=== PATIENT | male | born 1945 | race Caucasian/White ===

== ENCOUNTER → 2017-12-01 08:07 | Outpatient (CLI) | payer MEDICARE, BC, SELFPAY ==
[2017-12-01 10:06] LABS: ALB/GLOB Ratio 1.2 RATIO (0.9-2.4); AST(SGOT) 21 U/L (15-37); Alanine Aminotransfer ALT/SGPT 31 U/L (16-61); Albumin, Serum 3.9 g/dL (3.2-5.0); Alkaline Phosphatase 60 U/L (45-117); Anion Gap 10 (5-15); BUN 18 mg/dL (7-18); BUN/Creat Ratio 18.6 RATIO (10-20); Calcium,Total 8.7 mg/dL (8.5-10.1); Chloride 99 mmol/L (98-107); Creatinine, Serum 0.97 mg/dL (0.70-1.30); EST Glomerular Filtration Rate 81 mL/min (>60); Est Glom Filt Rate - Afr Amer 98 mL/min (>60); Globulin 3.3 g/dL (2.2-4.2); Glucose 97 mg/dL (74-106); PSA,Total - Annual Screen 0.47 ng/mL (0.00-4.00); Protein, Total 7.2 g/dL (6.4-8.2); Sodium Level 140 mmol/L (136-145)
== END ==
PROVIDERS: Family Provider Family Medicine; PCP Family Medicine; Visit Provider Family Medicine
DX: I10 Essential (primary) hypertension (principal); Z12.5 Encounter for screening for malignant neoplasm of prostate
CPT/HCPCS: 36415; 80053; 84153; G0103

== ENCOUNTER 2018-05-22 09:58 | Emergency (ER) | payer MEDICARE, BC, SELFPAY ==
[2018-05-22 09:59] VITALS: BP 152/86; PULSE 76; RESP 16; TEMP 36.6; O2SAT 100; BMI 29.7
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
--- NOTE | 2018-05-22 10:16 | ED.DEP ---
ED Disposition - Plan for ED Patient: Disposition: Home or Assisted Living Chief Complaint: Laceration Instructions: ED Laceration Facial Skin Glue Referrals: Cameron Hennessy MD [Primary Care Provider] - As Needed
[2018-05-22 10:25] VITALS: BP 138/77; PULSE 59; RESP 16; O2SAT 97
== END 2018-05-22 10:30 | disposition home or self-care (01) ==
LOC: ED 10:28
PROVIDERS: Emergency Provider Emergency Medicine; Family Provider Family Medicine; PCP Family Medicine
DX: S01.01XA Laceration without foreign body of scalp, initial encounter (principal); W20.8XXA Other cause of strike by thrown, projected or falling object, initial encounter; Y93.89 Activity, other specified; Y92.9 Unspecified place or not applicable
CPT/HCPCS: 12002; 99282

== ENCOUNTER → 2018-12-04 11:09 | Outpatient (CLI) | payer MEDICARE, BC, SELFPAY ==
[2018-12-04 12:47] LABS: ALB/GLOB Ratio 1.2 RATIO (0.9-2.4); AST(SGOT) 24 U/L (15-37); Alanine Aminotransfer ALT/SGPT 31 U/L (16-61); Alkaline Phosphatase 61 U/L (45-117); Anion Gap 9 (5-15); BUN 19 mg/dL (7-18); BUN/Creat Ratio 19.1 RATIO (10-20); Calcium,Total 8.8 mg/dL (8.5-10.1); Chloride 101 mmol/L (98-107); Cholesterol 159 mg/dL (200); EST Glomerular Filtration Rate 79 mL/min (>60); Est Glom Filt Rate - Afr Amer 95 mL/min (>60); Globulin 3.3 g/dL (2.2-4.2); Glucose 111 mg/dL (74-106); High Density Lipoprotein 48 mg/dL; PSA,Total - Annual Screen 0.47 ng/mL (0.00-4.00); Potassium 3.6 mmol/L (3.5-5.1); Protein, Total 7.3 g/dL (6.4-8.2); Sodium Level 136 mmol/L (136-145); Triglycerides 185 mg/dL; Very Low Density Lipoprotein 37 mg/dL (5-40)
== END ==
PROVIDERS: Family Provider Family Medicine; PCP Family Medicine; Visit Provider Family Medicine
DX: I10 Essential (primary) hypertension (principal); M10.9 Gout, unspecified; Z12.5 Encounter for screening for malignant neoplasm of prostate
CPT/HCPCS: 36415; 80053; 80061; 84153; 84550; G0103

== ENCOUNTER → 2019-12-10 10:35 | Outpatient (CLI) | payer MEDICARE, BC, SELFPAY ==
[2019-12-10 12:15] LABS: Erythrocyte Sedimentation Rate 5 mm/hr (0-20)
[2019-12-10 12:17] LABS: Hematocrit 45.6 % (40-54); Hemoglobin 15.2 g/dL (13.0-16.5); Mean Corp Hgb Conc 33.3 g/dL (32-36); Mean Corpuscular Hgb 29.6 pg (27.0-32.0); Mean Corpuscular Volume 88.7 fL (80-94); Platelet Count 247 K/mm3 (150-450); RBC Distribution Width CV 11.8 % (11.6-14.6); RBC Distribution Width SD 37.8 fl (35.1-43.9); Red Blood Count 5.14 M/mm3 (4.6-6.2); White Blood Count 7.1 K/mm3 (4.4-11.0)
[2019-12-10 12:23] LABS: Vitamin B12 645 pg/mL (211-911); Vitamin D,25 Hydroxy 37.4 ng/mL
[2019-12-10 12:25] LABS: ALB/GLOB Ratio 1.2 RATIO (0.9-2.4); AST(SGOT) 22 U/L (15-37); Alanine Aminotransfer ALT/SGPT 30 U/L (16-61); Alkaline Phosphatase 62 U/L (45-117); Anion Gap 6 (5-15); BUN 15 mg/dL (7-18); BUN/Creat Ratio 17.4 RATIO (10-20); Calcium,Total 8.8 mg/dL (8.5-10.1); Chloride 101 mmol/L (98-107); Creatinine, Serum 0.86 mg/dL (0.70-1.30); EST Glomerular Filtration Rate 93 mL/min (>60); Est Glom Filt Rate - Afr Amer 112 mL/min (>60); Ferritin 55 ng/mL (26-388); Globulin 3.4 g/dL (2.2-4.2); Glucose 113 mg/dL (74-106); Iron 66 ug/dL (65-175); Potassium 3.6 mmol/L (3.5-5.1); Protein, Total 7.4 g/dL (6.4-8.2); Sodium Level 136 mmol/L (136-145)
== END ==
PROVIDERS: PCP Family Medicine; Referring Provider Family Medicine; Visit Provider Family Medicine
DX: R41.3 Other amnesia (principal); I10 Essential (primary) hypertension; E78.00 Pure hypercholesterolemia, unspecified; E55.9 Vitamin D deficiency, unspecified; E61.1 Iron deficiency
CPT/HCPCS: 80053; 82306; 82607; 82728; 83540; 85027; 85652

== ENCOUNTER → 2020-01-11 13:15 | Outpatient (CLI) | payer MEDICARE, BC, SELFPAY ==
--- NOTE | 2020-01-11 13:21 | CT_ITS ---
STUDY: CT BRAIN WITHOUT CONTRAST REASON FOR EXAM: Male, 74 years old. MEMORY LOSS RADIATION DOSAGE (If Supplied By Facility): CTDIvol = ( 60.81 ) mGy, DLP = ( 1089.89 ) mGycm TECHNIQUE: Transaxial CT imaging of the brain was performed without administration of intravenous contrast material. Individualized dose optimization techniques were used for this CT. COMPARISON: No relevant priors. FINDINGS: Normal soft tissue structures. Normal calvarium. There is mild cerebral atrophy with widening of the extra-axial spaces and ventricular dilatation. There are areas of decreased attenuation within the white matter tracts of the supratentorial brain, consistent with microvascular disease changes. Normal basal ganglia and thalami. Normal brainstem. There is mild cerebellar atrophy. There is no intracranial hemorrhage. There are no findings of an acute ischemic infarction. Atherosclerotic calcification of the cavernous portions of the internal carotid arteries bilaterally. Partial opacification of the ethmoid sinuses bilaterally. Mild degree of the inflammatory changes in the right frontal sinus as well as the inferior aspects of the maxillary sinuses. CT/Brain/Head without Contrast IMPRESSION: Chronic involutional changes of the brain. Sinusitis. Electronically Signed: Nicko Matos, at 13:43 EDT , Service support ,
== END ==
PROVIDERS: PCP Family Medicine; Referring Provider Family Medicine; Visit Provider Family Medicine
DX: R41.3 Other amnesia (principal)
CPT/HCPCS: 70450

== ENCOUNTER → 2020-09-11 15:16 | Outpatient (CLI) | payer MEDICARE, BC, SELFPAY ==
--- NOTE | 2020-09-11 16:01 | RAD_ITS ---
STUDY: X-RAY - RIGHT KNEE REASON FOR EXAM: Chronic right knee pain, no recent injury. TECHNIQUE: 4 view(s) of the knee. COMPARISON: None. FINDINGS: Normal visualized distal femur. Normal visualized proximal tibia and fibula. Normal proximal tibiofibular articulation. There is mild joint space narrowing of the medial femorotibial compartment. There is moderate joint space narrowing of the lateral femorotibial compartment. Normal patellofemoral articulation. There is vascular calcification. 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 Electronically Signed: Andres Jaeger MD at 9:10 EST Tel , Service support ,
== END ==
PROVIDERS: PCP Family Medicine; Referring Provider Family Medicine; Visit Provider Family Medicine
DX: M25.561 Pain in right knee (principal)
CPT/HCPCS: 73564

== ENCOUNTER → 2021-07-17 | Outpatient (CLI) | payer MEDICARE, BC, SELFPAY ==
--- NOTE | 2021-07-17 09:23 | EKG12_ITS ---
Test Reason : PREOP Blood Pressure : / mmHG Vent. Rate : 056 BPM Atrial Rate : 056 BPM P-R Int : 220 ms QRS Dur : 094 ms QT Int : 424 ms P-R-T Axes : 015 056 040 degrees QTc Int : 409 ms Sinus bradycardia with 1st degree A-V block Otherwise normal ECG Confirmed by ALEN BAUER, JEANIE ([id number]), purchase request editor KOKO ORTIZ ([id number]) on 07/20/2021 9:16:13 AM Referred By: BEATA MATA Confirmed By:LILY LOWRY MD
[2021-07-17 09:59] LABS: Hematocrit 42.9 % (40-54); Hemoglobin 14.7 g/dL (13.0-16.5); Mean Corp Hgb Conc 34.3 g/dL (32-36); Mean Corpuscular Hgb 29.9 pg (27.0-32.0); Mean Corpuscular Volume 87.2 fL (80-94); Mean Platelet Vol. 9.9 fl (6.2-12.0); Platelet Count 243 K/mm3 (150-450); RBC Distribution Width CV 11.9 % (11.6-14.6); RBC Distribution Width SD 38.5 fl (35.1-43.9); Red Blood Count 4.92 M/mm3 (4.6-6.2); White Blood Count 6.6 K/mm3 (4.4-11.0)
[2021-07-17 10:18] LABS: Hemoglobin A1c 5.8 % (3.8-5.6)
[2021-07-17 10:33] LABS: Anion Gap 6 (5-15); BUN 13 mg/dL (7-18); BUN/Creat Ratio 15.9 RATIO (10-20); Calcium,Total 8.9 mg/dL (8.5-10.1); Chloride 98 mmol/L (98-107); Creatinine, Serum 0.82 mg/dL (0.70-1.30); EST Glomerular Filtration Rate 98 mL/min (>60); Est Glom Filt Rate - Afr Amer 118 mL/min (>60); Glucose 101 mg/dL (74-106); Potassium 3.4 mmol/L (3.5-5.1); Sodium Level 135 mmol/L (136-145)
== END | disposition home or self-care (01) ==
PROVIDERS: PCP Family Medicine; Visit Provider Physician Assistant
DX: Z01.810 Encounter for preprocedural cardiovascular examination (principal); R73.09 Other abnormal glucose
CPT/HCPCS: 36415; 80048; 83036; 85027; 93005

== ENCOUNTER → 2021-07-29 15:23 | Outpatient (CLI) | payer MEDICARE, BC, SELFPAY ==
--- NOTE | 2021-07-29 11:30 | HIP_PTH ---
PATIENT: IGNACIO NUNES LOC: [facility] U#:[id number] AGE/SX: 80/M ROOM: RE07/29/[address]: Dr. Quinton Mcpherson DO : 1945 BED: DIS: SPEC #: [id number] RECD: 07/29/21 15:00 STATUS: BRIDGET LISA #: [id number] MARY: 07/29/21 11:[address]: Quinton Mcpherson DEPT: SURGICAL PATHOLOGY RECD BY: Yaneth Sparks ENTERED: 07/30/21 08:54 SP TYPE: TOTAL HIP OTHR DR: Dr. Dane Hennessy MD [facility] Tissues: Hip, NOS Procedures: Decalcification bone/plaque Surgery Specimen Level IV HEADER OPERATION: Right total hip arthroplasty PRE-OP DIAGNOSIS: Primary osteoarthritis right hip TISSUE SUBMITTED: Bone right hip MICROSCOPIC DIAGNOSIS Bone and tissue of right hip, total hip resection: Severe degenerative joint disease. AM:chana 08/05/2021 MICROSCOPIC DESCRIPTION Slides are reviewed. GROSS DESCRIPTION Received is one container labeled with the patient's name and designated bone right hip. The specimen consists of a mcleod femoral head with portion of femoral neck. The femoral head measures 1 x 1 x 0.8 cm and the femoral neck measures 16 x 14 x 2 cm in length. The articular surface displays prominent osteophyte formation and bone erosion. Also present in the specimen container are multiple irregular fragments of bone reamings and pink-yellow soft tissue measuring in aggregate 9 x 8 x 2 cm. Assembler Ping Pong Table sections are submitted in two cassettes as follows: 1 - soft tissue, 2 - bone after decalcification. / AM:chana 07/30/21 TC:5 [facility]: [id number]
== END ==
PROVIDERS: PCP Family Medicine; Visit Provider Orthopaedic Surgery
DX: M16.11 Unilateral primary osteoarthritis, right hip (principal)
CPT/HCPCS: 88305; 88311

== ENCOUNTER → 2022-01-25 | Outpatient (CLI) | payer MEDICARE, BC, SELFPAY ==
[2022-01-25 11:02] LABS: ALB/GLOB Ratio 1.1 RATIO (0.9-2.4); AST(SGOT) 20 U/L (15-37); Alanine Aminotransfer ALT/SGPT 30 U/L (16-61); Albumin, Serum 3.6 g/dL (3.2-5.0); Alkaline Phosphatase 81 U/L (45-117); Anion Gap 4 (5-15); BUN 16 mg/dL (7-18); BUN/Creat Ratio 17.8 RATIO (10-20); Calcium,Total 8.8 mg/dL (8.5-10.1); Chloride 102 mmol/L (98-107); Cholesterol 153 mg/dL (200); EST Glomerular Filtration Rate 88 mL/min (>60); Est Glom Filt Rate - Afr Amer 106 mL/min (>60); Globulin 3.3 g/dL (2.2-4.2); Glucose 108 mg/dL (74-106); High Density Lipoprotein 47 mg/dL; PSA,Total - Annual Screen 0.39 ng/mL (0.00-4.00); Potassium 4.2 mmol/L (3.5-5.1); Protein, Total 6.9 g/dL (6.4-8.2); Sodium Level 137 mmol/L (136-145); Thyroid Stim Hormone (TSH) 2.09 uIU/mL (0.358-3.74); Triglycerides 102 mg/dL; Very Low Density Lipoprotein 20 mg/dL (5-40)
== END | disposition home or self-care (01) ==
LOC: MFPLAB 08:35
PROVIDERS: PCP Family Medicine; Visit Provider Family Medicine
DX: I10 Essential (primary) hypertension (principal); F03.90 Unspecified dementia, unspecified severity, without behavioral disturbance, psychotic disturbance, mood disturbance, and anxiety; Z12.5 Encounter for screening for malignant neoplasm of prostate
CPT/HCPCS: 36415; 80053; 80061; 84153; 84443; G0103

== ENCOUNTER → 2022-04-26 | Outpatient (CLI) | payer MEDICARE, BC, SELFPAY ==
[2022-05-11 13:08] LABS: Testosterone, Free 6.22 ng/dL (5.00-21.00)
[2022-05-11 14:48] LABS: Testosterone, % Free 2.51 % (1.50-4.20); Testosterone, Total 248 ng/dL (264-916)
== END | disposition home or self-care (01) ==
LOC: MFPLAB 11:46
PROVIDERS: PCP Family Medicine; Visit Provider Family Medicine
DX: E34.9 Endocrine disorder, unspecified (principal)
CPT/HCPCS: 36415; 84402; 84403

== ENCOUNTER → 2022-04-30 | Outpatient (CLI) | payer MEDICARE, BC, SELFPAY ==
--- NOTE | 2022-04-30 16:19 | MRI_ITS ---
STUDY: MRI BRAIN WITHOUT CONTRAST REASON FOR EXAM: Male, 76 years old. DEMENTIA -- N TECHNIQUE: Standardized multiplanar fat and water weighted pulse sequences were obtained. COMPARISON: CT of the brain 01/11/2020 FINDINGS: There is mild atrophy with most severe involvement of the temporal lobes.. Mild to moderate periventricular white matter ischemic changes are seen without mass effect or restricted diffusion. Normal white matter tracts of the supratentorial brain. Normal bilateral basal ganglia. Normal thalami. There is no extra-axial fluid accumulation. Normal flow voids within the major intracranial circulation suggesting patency by spin echo criteria. Normal sella turcica, pituitary gland, infundibular stalk, optic chiasm and hypothalamus. Normal tectal plate and pineal gland. Normal midbrain, fabiano and medulla. Normal cerebellum. Normal basal cisterns. Normal bilateral temporal bones. Normal bilateral internal auditory canals. No demonstrated orbital abnormality, within the constraints of a routine brain study. Small mucous retention cyst or polyp in the right anterior ethmoid air cells.. There also appear to be polyps within the posterior nasal cavity however clinical correlation is recommended in this regard. Normal calvarium and skull base. Normal visualized soft tissue structures. Normal visualized upper cervical spine. MRI/Brain without Contrast IMPRESSION: Atrophy and mild to moderate periventricular white matter ischemic changes.. There is disproportionate atrophy of the temporal lobes raising question of changes of Alzheimer''s dementia however clinical correlation is recommended No evidence for acute infarct Electronically Signed: Rob Austin MD at 18:20 EDT ,
== END | disposition home or self-care (01) ==
LOC: MRI 16:06
PROVIDERS: PCP Family Medicine; Referring Provider Family Medicine; Visit Provider Family Medicine
DX: F03.90 Unspecified dementia, unspecified severity, without behavioral disturbance, psychotic disturbance, mood disturbance, and anxiety (principal)
CPT/HCPCS: 70551

== ENCOUNTER → 2023-01-11 | Outpatient (CLI) | payer MEDICARE, BC, SELFPAY ==
--- NOTE | 2023-01-11 09:45 | ECHOD_ITS ---
Reason For Study: ISAI Procedure This was a 2D Doppler, Color Flow transthoracic echocardiogram. Technically difficult due to patient breathing. Exam performed in department. Left Ventricle Normal size and thickness. The left ventricular ejection fraction is 65 %. Normal diastology for age. Right Ventricle Normal right ventricle. Atria The left and right atria are normal. Mitral Valve There is Moderate focal posterior mitral annular calcification. Trivial mitral valve insufficiency. Tricuspid Valve Mild tricuspid valve insufficiency. Right ventricular systolic pressure estimated to be 38 mmHg. Aortic Valve Aortic sclerosis, no stenosis. Pulmonic Valve The pulmonic valve is not well visualized. Mild (1+) pulmonic valve insufficiency. Great Vessels Mildly dilated aortic root. Pericardium/Pleural No pericardial effusion. MMode/2D Measurements & Calculations LVIDd: 5.6 cm IVSd: 0.98 cm Ao root diam: 3.9 cm LVIDs: 2.9 cm LVPWd: 0.81 cm FS: 48.1 % LAV(MOD-bp): 53.1 ml LVAd ap4: 25.5 cm2 SV(MOD-sp4): 35.8 ml LAV(MOD-bp) Indexed: 23.7 ml/m2 LVLd ap4: 7.4 cm LAV(MOD-sp2): 69.5 ml EDV(MOD-sp4): 72.2 ml LAV(MOD-sp4): 36.2 ml EDV(sp4-el): 74.6 ml LVAs ap4: 16.3 cm2 LVLs ap4: 6.6 cm ESV(MOD-sp4): 36.4 ml ESV(sp4-el): 34.3 ml EF(MOD-sp4): 49.5 % EF(sp4-el): 54.0 % SV(sp4-el): 40.2 ml LA A4 area: 15.8 cm2 LA dimension(2D): 3.7 cm RA A4 area: 13.6 cm2 Time Measurements MV dec time: 0.30 sec Doppler Measurements & Calculations MV E max nigel: 80.1 cm/sec Lat Peak E' Nigel: 14.0 cm/sec Med Peak E' Nigel: 13.9 cm/sec MV A max nigel: 79.6 cm/sec E/E' lat: 5.7 E/E' med: 5.8 MV E/A: 1.0 MV V2 max: 92.1 cm/sec Ao V2 max: 171.6 cm/sec MV max P.4 mmHg MV dec slope: 262.7 cm/sec2 Ao max P.8 mmHg MV V2 mean: 62.0 cm/sec Ao V2 mean: 110.8 cm/sec MV mean P.7 mmHg Ao mean P.8 mmHg MV V2 VTI: 41.6 cm Ao V2 VTI: 36.9 cm AV (velocity ratio): 0.69 LV V1 max: 115.6 cm/sec PA V2 max: 109.3 cm/sec TR max nigel: 293.4 cm/sec LV V1 max P.4 mmHg PA V2 mean: 73.9 cm/sec TR max P.4 mmHg LV V1 mean P.9 mmHg LV V1 mean: 78.2 cm/sec LV V1 VTI: 25.5 cm ECHO/Echo Complete Interpretation Summary The left ventricular ejection fraction is 65 %. Mild tricuspid valve insufficiency. Mild (1+) pulmonic valve insufficiency. Aortic sclerosis, no stenosis. Mildly dilated aortic root. There is Moderate focal posterior mitral annular calcification. Ordering Physician: Panda Matson V Referring Physician: Panda Matson V Performed By: Shelly Almodovar RCS
--- NOTE | 2023-01-11 16:16 | RAD_ITS ---
EXAM: XR LEFT SHOULDER COMPLETE, 2 OR MORE VIEWS CLINICAL INDICATION: pain TECHNIQUE: Two or more views of the left shoulder. COMPARISON: No relevant prior studies available. FINDINGS: BONES/JOINTS: Unremarkable. No acute fracture. No subluxation. Normal alignment. Preservation of the joint space. No sclerotic or destructive changes observed. SOFT TISSUES: Unremarkable. No soft tissue swelling or gas. No radiopaque foreign body. RAD/Shoulder min 2 Views IMPRESSION: Negative left shoulder x-rays. Electronically Signed: Quinton Perales MD at 0:41 EDT ,
== END | disposition home or self-care (01) ==
PROVIDERS: PCP Family Medicine; Referring Provider Internal Medicine Pulmonary Disease; Visit Provider Internal Medicine Pulmonary Disease
DX: G47.33 Obstructive sleep apnea (adult) (pediatric) (principal); G47.37 Central sleep apnea in conditions classified elsewhere; M25.512 Pain in left shoulder
CPT/HCPCS: 73030; 93306

== ENCOUNTER 2023-05-01 08:06 | Emergency (ER) | payer MEDICARE, BC, SELFPAY ==
[2023-05-01 08:07] VITALS: BP 161/78; PULSE 66; RESP 14; TEMP 36.1; O2SAT 97; BMI 30.1
--- NOTE | 2023-05-01 08:33 | ED.VIS.DENTA ---
HPI History of Present Illness Chief Complaint: Dental Informant: patient and spouse/S.O. Narrative Narrative: Here with spouse history of dementia, presents concerns for pain left dental region. They reported symptoms started yesterday 3 PM, back from [place]. Spouse reports he has pain throughout the night, reported he pressed on his upper gum there was drainage that was clear. No pus. No fevers. He was given Advil at home. Currently denies any pain. PFSH PFS Home Medications Unobtainable 05/22/18 [History Last Taken Unknown] Allergy/AdvReac Type Severity Reaction Status Date / Time No Known Allergies Allergy Verified 05/22/18 10:00 Social History Smoking Status: Former smoker ROS ROS ED Constitutional Constitutional ED: Denies chills, fever(s) or sweats Eyes Eyes: Denies change in vision ENT ENT ED: Reports other Details: Dental pain ; Denies dysphagia or sore throat Cardiovascular Cardiovascular: Denies chest pain, leg edema, palpitations or racing heartbeat Respiratory/Chest Respiratory/Chest: Denies cough, dyspnea or dyspnea on exertion Gastrointestinal Gastrointestinal: Denies abdominal pain, diarrhea, nausea or vomiting Genitourinary Genitourinary ED: Denies dysuria, hematuria or urinary frequency Musculoskeletal Musculoskeletal: Denies back pain, extremity pain or neck pain Integumentary Denies rash or wounds Neurologic Neurologic: Denies headache(s), paresthesias or weakness EXAM Physical Exam Const Vital Signs: 05/01/23 08:07 Temperature 97 F L Temperature Source Temporal Pulse Rate 66 Respiratory Rate 14 Blood Pressure 161/78 H Blood Pressure Mean 105 Pulse Ox 97 Oxygen Delivery Method Room Air Positive well nourished and well developed General Appearance ED: well developed and NAD HEENT Reports moist mucous membranes HEENT Narrative: Evaluation oral mucosa moist, there is no focal dental caries, there is appear to be residual inflammatory change right at the dental/gumline above tooth 11, there is no fluctuance. There is no bleeding. No sublingual edema. No other acute findings. normocephalic and atraumatic Eyes PERRL, EOMs intact bilaterally and conjunctivae normal General Eye ED: Yes normal appearance of both eyes Neck no lymphadenopathy and supple General: Negative for tenderness Chest Wall Chest: Negative for tenderness Resp normal respiratory effort and normal air movement Effort and Inspection: symmetric chest movement; Negative for respiratory distress Cardio regular rate, regular rhythm and no murmurs Peripheral Pulses: pulses 2+ throughout GI normal to inspection, nondistended, normoactive bowel sounds and non-tender Palpation: Negative for guarding or rebound tenderness present Back/Spine no CVA tenderness and no thoracic nor lumbar tenderness Extremity normal to inspection General Extremety ED: Negative for edema or tenderness General Extremity: Negative for edema Neuro no sensory deficits noted Neuro Narrative: Alert to person, baseline per spouse Sensorium / Orientation: awake and alert Skin no rashes or lesions noted and no wounds MDM MDM MDM Narrative Medical decision making narrative: Interventions / MDM: Differential diagnosis: Gingivitis Diagnosis considered but do not suspect: No clinical abscess My EKG interpretation: N/A Imaging independently reviewed and interpreted by myself: N/A External documents reviewed: N/A Test considered but not ordered:N/A ED course: Nontoxic vital signs stable, exam more likely a focal gingivitis that strain, there is no bleeding. He has no symptoms currently. Discussed monitoring for any bleeding or worsening symptoms. Follow-up with his dentist as needed. All questions were answered. Re-evaluation: stable Disposition discussed with patient/family/significant other: Patient and spouse Case discussed with consulting clinician: N/A This note was generated with [employer] dictation software. It may contain incorrect words, spelling, and punctuation that were not noted in checking the note before signing. Discharge Plan Triage Chief Complaint: Dental ED Provider: Gama Foreman Dx/Rx/DC Orders Clinical Impression: Gingivitis, acute, History of dementia Instructions: Understanding Gingivitis Prescriptions: No Action Unobtainable Primary Care Provider: Cameron Hennessy Referrals: Cameron Hennessy MD [Primary Care Provider] - Activity Restrictions/Additional Instructions: Monitor the gumline for any bleeding. Follow-up with your dentist as needed. Disposition Disposition: Home, Self Care Discharge Date/Time: 05/01/23 08:48
== END 2023-05-01 08:48 | disposition home or self-care (01) ==
PROVIDERS: Emergency Provider Emergency Medicine; PCP Family Medicine; Visit Provider Emergency Medicine
DX: K05.00 Acute gingivitis, plaque induced (principal); F03.90 Unspecified dementia, unspecified severity, without behavioral disturbance, psychotic disturbance, mood disturbance, and anxiety; Z87.891 Personal history of nicotine dependence
CPT/HCPCS: 99282

== ENCOUNTER → 2023-05-24 | Outpatient (CLI) | payer MEDICARE, BC, SELFPAY ==
[2023-05-24 11:03] LABS: ALB/GLOB Ratio 1.1 RATIO (0.9-2.4); AST(SGOT) 17 U/L (15-37); Alanine Aminotransfer ALT/SGPT 26 U/L (16-61); Albumin, Serum 3.7 g/dL (3.2-5.0); Alkaline Phosphatase 74 U/L (45-117); Anion Gap 6 (5-15); BUN 14 mg/dL (7-18); BUN/Creat Ratio 15.4 RATIO (10-20); Chloride 100 mmol/L (98-107); Cholesterol 160 mg/dL (200); Creatinine, Serum 0.91 mg/dL (0.70-1.30); EST Glomerular Filtration Rate 86 mL/min (>60); Est Glom Filt Rate - Afr Amer 104 mL/min (>60); Globulin 3.5 g/dL (2.2-4.2); Glucose 116 mg/dL (74-106); High Density Lipoprotein 50 mg/dL; Potassium 3.9 mmol/L (3.5-5.1); Protein, Total 7.2 g/dL (6.4-8.2); Sodium Level 135 mmol/L (136-145); Triglycerides 165 mg/dL; Very Low Density Lipoprotein 33 mg/dL (5-40)
== END | disposition home or self-care (01) ==
LOC: MFPLAB 08:04
PROVIDERS: PCP Family Medicine; Visit Provider Family Medicine
DX: E78.00 Pure hypercholesterolemia, unspecified (principal); E34.9 Endocrine disorder, unspecified
CPT/HCPCS: 36415; 80053; 80061; 84403; 84550

== ENCOUNTER → 2023-10-11 | Outpatient (CLI) | payer MEDICARE, BC, SELFPAY ==
--- NOTE | 2023-10-11 08:57 | VDLE_ITS ---
Reason For Study: LLE Swelling RIGHT LEFT CFV is compressible, spontaneous, phasic, CFV is compressible, spontaneous, phasic, competent and demonstrates normal competent, and demonstrates normal augmentation. augmentation. Procedure FV is compressible, spontaneous, phasic, This is a venous duplex using B-mode, color competent and demonstrates normal flow and spectral Doppler. augmentation. Exam performed in department. POP V is compressible, phasic, and The exam was diagnostic. INCOMPETENT for greater than 1.0 second. T/P Trunk is compressible. PTV is compressible. LT PerV is compressible. SFJ is competent and measures 0.80 cm. GSV proximal thigh measures 0.26 x 0.30 cm. GSV at knee measures 0.26 x 0.28 cm. GSV INCOMPETENT throughout for greater than 0.5 seconds. SSV proximal calf is INCOMPETENT for greater than 0.5 seconds and measures 0.81 x 0.84 cm. ASV at knee is INCOMPETENT for greater than 0.5 seconds and measures 0.67 x 0.75 cm. VL/Venous Duplex US, Unilateral Interpretation Summary Deep veins of the left lower extremity are patent and compressible segmentally. There is no evidence of left lower extremity deep vein thrombosis. The left great saphenous vein bertha ears patent and compressible segmentally. Positive for reflux in the left popliteal vein, great saphenous vein throughout , small saphenous vein, and accessory saphenous vein at knee. Ordering Physician: Peggy De La Rosa Referring Physician: Dane Hennessy MD Performed By: Germain Cordero RVT
== END | disposition home or self-care (01) ==
LOC: CVS 08:57
PROVIDERS: PCP Family Medicine; Referring Provider Surgery Trauma Surgery; Visit Provider Surgery Trauma Surgery
DX: M79.89 Other specified soft tissue disorders (principal); I83.90 Asymptomatic varicose veins of unspecified lower extremity
CPT/HCPCS: 93971

== ENCOUNTER → 2023-12-06 | Outpatient (CLI) | payer MEDICARE, BC, SELFPAY | END | disposition home or self-care (01) | LOC: MFPLAB 09:41 | PROVIDERS: PCP Family Medicine; Visit Provider Family Medicine | DX: Z00.00 Encounter for general adult medical examination without abnormal findings (principal) ==

== ENCOUNTER 2023-12-15 06:47 | Day surgery (SDC) | payer MEDICARE, BC, SELFPAY ==
[2023-12-14 08:38] VITALS: BMI 30.5
[2023-12-15 07:05] LABS: Absolute Lymphocyte Count 1.27 X10^3/uL (0.83-4.51); Absolute Neutrophil Count 4.8 X10^3/uL (2.0-7.7); Basophil# 0.03 X10^3/uL; Basophil% 0.4 % (0-1); Eosinophil# 0.45 X10^3/uL; Eosinophils% 6.2 % (0-5); Hematocrit 44.2 % (40-54); Hemoglobin 14.8 g/dL (13.0-16.5); Lymphocyte # 1.27 X10^3/ul (0.83-4.51); Lymphocyte % 17.5 % (19-41); Mean Corp Hgb Conc 33.5 g/dL (32-36); Mean Corpuscular Hgb 30.1 pg (27.0-32.0); Mean Corpuscular Volume 89.8 fL (80-94); Mean Platelet Vol. 9.6 fl (6.2-12.0); Monocyte# 0.71 X10^3/uL; Monocyte% 9.8 % (0-10); NRBC Flagged by Analyzer 0 % (0-5); Neutrophil # 4.76 X10^3/uL (2.7-7.7); Neutrophil % 65.8 % (47-70); Platelet Count 225 K/mm3 (150-450); RBC Distribution Width CV 12.1 % (11.6-14.6); RBC Distribution Width SD 39.7 fl (35.1-43.9); Red Blood Count 4.92 M/mm3 (4.6-6.2); White Blood Count 7.2 K/mm3 (4.4-11.0)
[2023-12-15 07:23] LABS: Anion Gap 5 (5-15); BUN 15 mg/dL (7-18); BUN/Creat Ratio 15.9 RATIO (10-20); Calcium,Total 8.9 mg/dL (8.5-10.1); Chloride 103 mmol/L (98-107); Creatinine, Serum 0.94 mg/dL (0.70-1.30); EST Glomerular Filtration Rate 82 mL/min (>60); Est Glom Filt Rate - Afr Amer 100 mL/min (>60); Estimated Creatinine Clearance 87.47 ml/min; Glucose 114 mg/dL (74-106); Potassium 3.9 mmol/L (3.5-5.1); Sodium Level 138 mmol/L (136-145)
--- NOTE | 2023-12-15 13:11 | OP.PCM_ITS ---
Report of Operation Date of Procedure: 12/15/23 Pre-Operative Diagnosis: Venous insufficiency with painful varicose veins Post-Operative Diagnosis: Same Surgery/Procedure Performed:: Venogram of the inferior vena cava Intravascular ultrasound of the IVC, right common and external iliac veins, left common and external iliac veins Surgeon: Gulshan Mtz Type of Anesthesia: Local and Sedation,Conscious Estimated Blood Loss (mL): 2 Description of Procedure: HPI: Patient is a 78-year-old male with painful varicose veins of the left lower extremity which have been refractory to compression. He had venous reflux ultrasound studies which revealed both superficial and deep reflux and symptoms including thigh. Given his reflux studies and his symptom pattern is taken now for venogram to assess for central venous compression or obstruction. Description of procedure: Upon today informed consent and verification correct patient procedure site patient taken to the Nursery Technician where he was positioned prepped and draped in usual sterile fashion. Conscious sedation ministered with Versed and fentanyl. Skin overlying the left common femoral vein was anesthetized 1% lidocaine the vessel accessed under ultrasound guidance with micropuncture needle wire. This then exchanged for micropuncture sheath through which injection ilio caval venogram was performed. This revealed satisfactory placement with no extravasation dissection also revealed very large caliber left common and external iliac veins with brisk contrast transit no significant collaterals. Through the micropuncture sheath a Bentson wire was advanced into the vena cava and the micropuncture sheath exchanged out for a 10 Guyanese sheath. Through the 10 Guyanese sheath intravascular shunt was advanced and recorded pullback performed of the IVC, left common leg vein, left external iliac vein. Neck skin overlying the right common femoral vein was Nestabs 1% lidocaine the vessel accessed with a micropuncture needle wire under ultrasound guidance. This then changed for micropuncture sheath through which injection ilio caval venogram was performed revealing satisfactory positioning with no extravasation dissection. This also revealed normal caliber right iliac system with no significant collaterals or obstruction. Through the micropuncture sheath Bentson wire advanced the micropuncture sheath exchanged for an 8 Guyanese sheath. Intravascular sound probe was then advanced and recorded pullback performed of the IVC, right common iliac vein, right external leg pain. Intravascular ultrasound evaluation revealed no significant compression of the IVC or the bilateral common iliac vessels. The left iliac veins simply large caliber throughout and did show evidence of lingering contrast likely secondary to his valvular insufficiency. Margins he is without withdrawn and manual pressure was held for 5 minutes after which satisfactory stasis was noted. He was then taken recovery for bedrest prior to discharge home.
== END 2023-12-15 23:59 | disposition home or self-care (01) ==
LOC: CLSP 06:51
PROVIDERS: PCP Family Medicine; Referring Provider Surgery Trauma Surgery; Visit Provider Surgery Trauma Surgery
DX: I83.812 Varicose veins of left lower extremity with pain (principal); I87.2 Venous insufficiency (chronic) (peripheral); M79.89 Other specified soft tissue disorders; Z79.899 Other long term (current) drug therapy; Z87.891 Personal history of nicotine dependence
CPT/HCPCS: 36010; 36415; 37252; 37253; 75825; 76937; 80048; 85025; 99152; 99153; C1753; C1769; C1894; J7040; Q9967

== ENCOUNTER → 2024-08-23 | Outpatient (CLI) | payer MEDICARE, BC, SELFPAY ==
--- NOTE | 2024-08-23 16:05 | RAD_ITS ---
STUDY: X-RAY - RIGHT HAND REASON FOR EXAM: Male, 79 years old. Right dupuytrens TECHNIQUE: 3 views of the right hand. COMPARISON: None. FINDINGS: Normal radiocarpal articulation. Normal distal radioulnar joint. Normal visualized carpal bones. Normal carpal articulations. Normal carpometacarpal articulation of the thumb. Normal second through fifth carpometacarpal joints. Normal metacarpi. Normal metacarpophalangeal joint of the thumb. Normal interphalangeal joint of the thumb. Normal proximal and distal phalanges of the thumb. Normal metacarpophalangeal joints of the second through fifth fingers. 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 Intact phalanges of the second through fifth fingers. There is no demonstrated fracture. The soft tissue structures are unremarkable. 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 No demonstrated fracture. Electronically Signed: Getachew Lopez MD at 13:31 EST ,
--- NOTE | 2024-08-23 16:05 | RAD_ITS ---
STUDY: X-RAY - LEFT HAND REASON FOR EXAM: Male, 79 years old. Left dupuytrens TECHNIQUE: 3 views of the left hand. COMPARISON: None. FINDINGS: Normal radiocarpal articulation. Normal distal radioulnar joint. Intact visualized carpal bones. There is mild triscaphe arthrosis. Normal carpometacarpal articulation of the thumb. Normal second through fifth carpometacarpal joints. Normal metacarpi. Normal metacarpophalangeal joint of the thumb. Normal interphalangeal joint of the thumb. Normal proximal and distal phalanges of the thumb. Normal metacarpophalangeal joints of the second through fifth fingers. Normal proximal and distal interphalangeal joints of the second through fifth fingers. Normal phalanges of the second through fifth fingers. There is a metallic ring surrounding the fourth PIP joint. There is no demonstrated acute fracture. The soft tissue structures are unremarkable. RAD/Hand Min 3 Views IMPRESSION: Mild triscaphe arthrosis. No demonstrated acute fracture. Electronically Signed: Getachew Lopez MD at 13:36 EST ,
== END | disposition home or self-care (01) ==
LOC: RAD 15:50
PROVIDERS: PCP Family Medicine; Referring Provider Surgery Plastic and Reconstructive Surgery; Visit Provider Surgery Plastic and Reconstructive Surgery
DX: M72.0 Palmar fascial fibromatosis [Dupuytren] (principal)
CPT/HCPCS: 73130

== ENCOUNTER 2024-12-10 13:00 | Outpatient (RCR) | payer MEDICARE, BC, SELFPAY ==
--- NOTE | 2024-10-02 10:56 | HP.OTEVAL ---
Patient's Visit Information Visit Information Visit Information: IGNACIO NUNES is a 79 year old M, referred to Occupational Therapy by Dr. Panda Hernández MD, with a diagnosis of Dupuytren's contracture of left hand. Date of Evaluation: 09/28/24 Occupational Therapist: Shi Lawson, ROB/Lam, CHT Subjective Subjective: This 79 year old male was seen for OT Eval with dx of Dupuytren's contracture of left hand. pt arrives for custom orthosis following xiaflex injection and manipulation 09/28/24. pts is with him today. states they are both happy with his motion now. ROM ROM Comments: pt demo with full ability to form left composite fist- pt demo with MF and RF PIP extension in full ext- LF slight PIP flexion ( this was not a finger that was manipulated) Goals Goal:: pt will demo full ROM of left MF/RF ROM to improve pts functional use of left hand with ADLs and IADLS Goal:: Pt will demo ind. Donning/doffing of custom orthosis by end of 1st session. Pt will demonstrate understanding of orthosis use and precautions by end of 1st session and demonstrate knowledge of returning to clinic if orthosis needs adj. to increase comfort by end of 1st session. Rehabilitation General Assessment: pt arrives just after left hand manipulation for custom orthosis for pt to wear at night for next 6 months- therapist amena. custom orthosis ed. pts in use, precautions and cleaning orthosis- as LF has slight flexion at PIP as orthosis contours to his hand- therapist would like pt to return in 2 weeks to have orthosis adjusted to ensure MF and RF are in Full ext. pts demo understanding and agree to POC. Rehabilitation Potential: Good Anticipated Interventions Anticipated Interventions: A/AAROM/PROM, Orthoses, Education re assistive Equipment, Education re Diagnosis, Caregiver Training and Home Program Visit Plan TEXT: Thank you for the opportunity to evaluate your patient. For Medicare and Medicare HMO plans, please review the plan of care and approve it. It will need to be FAXED BACK to us at [phone] for Medicare purposes. Please let me know if there are questions or concerns regarding this plan of care. Physician Signature: Date:
--- NOTE | 2025-04-18 09:27 | HP.OT.NRP ---
Patient Information Patient Information: IGNACIO NUNES was seen in my office for initial evaluation on 09/28/24. The following Plan of Care was established for this patient: Anticipated Interventions Anticipated Interventions: A/AAROM/PROM, Orthoses, Education re assistive Equipment, Education re Diagnosis, Caregiver Training and Home Program Last Seen Last Seen: This patient was last seen in our office 12/10/24. Pertinent comments regarding their Occupational therapy will appear below: No further apts have been scheduled and due to time lapse in services pt is d/c. At this point I will be discontinuing this patient from occupational therapy. I would be happy to see this patient again in the future if found appropriate by the physician. Thank you! Shi Lawson, OTR/L, CHT
== END 2024-12-10 19:00 | disposition home or self-care (01) ==
LOC: OT 13:00
PROVIDERS: PCP Family Medicine; Referring Provider Surgery Plastic and Reconstructive Surgery; Visit Provider Surgery Plastic and Reconstructive Surgery
DX: M72.0 Palmar fascial fibromatosis [Dupuytren] (principal)
CPT/HCPCS: 97166; 97530; 97760

== ENCOUNTER → 2025-04-25 | Outpatient (CLI) | payer MEDICARE, BC, SELFPAY ==
[2025-04-25 12:28] LABS: Hematocrit 45.0 % (40-54); Hemoglobin 15.4 g/dL (13.0-16.5); Mean Corp Hgb Conc 34.2 g/dL (32-36); Mean Corpuscular Volume 88.4 fL (80-94); Mean Platelet Vol. 10.4 fl (6.2-12.0); Platelet Count 234 K/mm3 (150-450); RBC Distribution Width CV 11.8 % (11.6-14.6); RBC Distribution Width SD 38.2 fl (35.1-43.9); Red Blood Count 5.09 M/mm3 (4.6-6.2); White Blood Count 7.9 K/mm3 (4.4-11.0)
[2025-04-25 13:05] LABS: AST(SGOT) 21 U/L (<=37); Alanine Aminotransfer ALT/SGPT 17 U/L (<=46); Albumin, Serum 4.3 g/dL (3.4-4.8); Alkaline Phosphatase 62 U/L (40-129); Anion Gap 12 (5-15); BUN 15 mg/dL (4-19); BUN/Creat Ratio 16.0 RATIO (10-20); Calcium,Total 9.4 mg/dL (7.6-11.0); Carbon Dioxide 26.1 mmol/L (21.0-32.0); Chloride 100 mmol/L (98-108); Cholesterol 143 mg/dL (<=200); Globulin 2.7 g/dL (2.2-4.2); Glucose 103 mg/dL (70-99); Low Density Lipoprotein Calc. 65 mg/dL; Potassium 4.1 mmol/L (3.3-5.1); Triglycerides 180 mg/dL; Very Low Density Lipoprotein 36 mg/dL (5-40); Vitamin D,25 Hydroxy 32.6 ng/mL (30-100); cholesterol:hdl ratio screen 3.36
== END | disposition home or self-care (01) ==
LOC: MFPLAB 09:45
PROVIDERS: PCP Family Medicine; Visit Provider Family Medicine
DX: I10 Essential (primary) hypertension (principal); F03.90 Unspecified dementia, unspecified severity, without behavioral disturbance, psychotic disturbance, mood disturbance, and anxiety
CPT/HCPCS: 36415; 80053; 80061; 82306; 84443; 85027

== ENCOUNTER → 2025-07-23 | Outpatient (CLI) | payer MEDICARE, BC, SELFPAY ==
[2025-07-23 13:07] LABS: PSA,Total - Annual Screen 0.24 ng/mL (0.02-4.00)
== END | disposition home or self-care (01) ==
PROVIDERS: PCP Family Medicine; Visit Provider Nurse Practitioner Family
DX: Z12.5 Encounter for screening for malignant neoplasm of prostate (principal)
CPT/HCPCS: 36415; 84153; G0103